=== PATIENT | male | born 1975 | race Caucasian/White ===

== ENCOUNTER 2023-07-22 10:27 | Emergency (ER) | payer BC, SELFPAY ==
[2023-07-22 10:35] VITALS: BP 165/106
--- NOTE | 2023-07-22 11:17 | ED.GENMED ---
History of Present Illness
<Adelina Cervantes PA-C - Last Filed: 07/22/23 19:10>
General
Chief Complaint: Dizziness
Source: patient
Exam Limitations: none
Time Seen by Provider: 07/22/23 11:16
Nursing documentation reviewed up to this point in time: agreed with
Travel History
Have you had any contact with someone who has COVID-19?: No
Do you have any symptoms of coronavirus? Fever > 100 degrees, chills, cough, shortness of breath, sore throat, loss of taste or smell, muscle aches, or headache?: No
History of Present Illness
History of Present Illness:
48-year-old male with history of idiopathic dilated cardiomyopathy presenting emergency department today with dizziness that started last night. Patient states that last night, he started to feel dizzy when he is trying to sleep, he states that he
was eventually able to fall asleep despite the symptoms. Patient states that he woke up today and noticed that his symptoms are still present. Patient states that when he got a bed and started to walk around, he had a lot of trouble walking.
Patient denies any visual changes, denies any headache but does note a sensation of feeling like his head is spinning does not note that he feels like the room is spinning. Patient states that there is no positional component to his symptoms.
Patient denies any chest pain, shortness of breath, lower extremity swelling. Patient denies any nausea or vomiting. Patient has never had anything like this before. Patient has been feeling well these past few days, denies recent illnesses,
recent URI symptoms. Patient denies recent hospitalizations, patient is not on a blood thinner.
Past History
<Adelina Cervantes PA-C - Last Filed: 07/22/23 19:10>
Past History
ED Past Medical History: Other (Cardiomyopathy)
ED Past Surgical History: None
Social History
Tobacco: Non-smoker
Alcohol: None
Drug: None
Personal:
Living: with family
Review of Systems
<Adelina Cervantes PA-C - Last Filed: 07/22/23 19:10>
Review of Systems
All Other Systems: ROS reviewed and negative except as documented in HPI and ROS
Phy Exam
<Adelina Cervantes PA-C - Last Filed: 07/22/23 19:10>
Physical Exam
Physical Exam:
General: Patient is well appearing and in no acute distress; non-toxic
Skin: Warm and dry, no rashes or lesions
Head: Normocephalic, atraumatic
Eyes: Sclera non-icteric. EOMs intact. PERRLA. No nystagmus.
Cardiac: Regular rate
Peripheral Vascular:
Pulm: Normal respiratory effort
Abdomen: No abdominal tenderness
Musculoskeletal:
Neuro: CN II-XII intact, no focal neurologic deficits. Uniwmr-ng-[id number] testing, xnqi-jz-[id number] testing intact. 5 out of 5 strength in bilateral upper and lower extremities.
Psychiatric: Appropriate mood and affect.
Scores
<Adelina Cervantes PA-C - Last Filed: 07/22/23 19:10>
NIH Stroke Score
Level of Consciousness: 0 - Alert
LOC Questions: 0-Answers both correctly
LOC Commands: 0-Performs both correctly
Best Horizontal Gaze: 0-Normal
Visual Quach: 0=Normal, no visual loss
Facial Palsy: 0=Normal, symmetrical
Motor - Right Arm: 0=No drift 10 seconds
Motor - Left Arm: 0=No drift 10 seconds
Motor - Right Le-No drift 5 seconds
Motor - Left Le-No drift 5 seconds
Limb Ataxia: 0-Absent
Sensation: 0-Normal
Best Language: 0-No aphasia
Dysarthria: 0-Normal
Extinction and Inattention: 0-No abnormality
Total Score:: 0
<Alejandra Aguilera MD - Last Filed: 07/22/23 12:13>
NIH Stroke Score
Total Score:: 0
Course
<Adelina Cervantes PA-C - Last Filed: 07/22/23 19:10>
Orders/Labs/Results
Orders:
Orders
07/22/23 11:28
Electrocardiogram (*1) Urgent
Reason for Study: Vertigo / Dizzy
EKG- Treatment ONCE
07/22/23 11:29
CT Head W/o Iv Contrast Urgent
Comment:
Reason For Exam: dizziness
07/22/23 11:32
Complete Blood Count/With Diff Urgent
Comprehensive Metabolic Panel Urgent
07/22/23 12:05
PT Consult [Pt Eval And Treat] Urgent
Activity Level: Out of Bed-Early Mobility
07/22/23 13:16
Orthostatic VS- Treatment ONCE
07/22/23 13:19
Meclizine [Antivert] 12.5 mg PO NOW STA
07/22/23 13:55
Meclizine [Antivert] 50 mg PO NOW STA
Abnormal Lab Results
07/22/23
11:32
MCH 31.9 H pg
(27.0-31.0)
Sodium 134 L mmol/L
(135-145)
Glucose 149 H mg/dl
(70-99)
ALT 58 H U/L
(0-50)
07/22/23 11:32
07/22/23 11:32
Vital Signs
Initial and Last Documented VS:
Initial Vital Signs
Temp Pulse Resp BP Pulse Ox
98.3 F 67 16 165/106 98
07/22/23 10:35 07/22/23 10:35 07/22/23 10:35 07/22/23 10:35 07/22/23 10:35
Last Documented Vital Signs
Temp Pulse Resp BP Pulse Ox
98.3 F 67 16 137/87 98
07/22/23 10:35 07/22/23 10:35 07/22/23 10:35 07/22/23 13:01 07/22/23 13:01
<Alejandra Aguilera MD - Last Filed: 07/22/23 12:13>
Orders/Labs/Results
Orders:
Orders
07/22/23 11:28
Electrocardiogram (*1) Urgent
Reason for Study: Vertigo / Dizzy
EKG- Treatment ONCE
07/22/23 11:29
CT Head W/o Iv Contrast Urgent
Comment:
Reason For Exam: dizziness
07/22/23 11:32
Complete Blood Count/With Diff Urgent
Comprehensive Metabolic Panel Urgent
07/22/23 12:05
PT Consult [Pt Eval And Treat] Urgent
Activity Level: Out of Bed-Early Mobility
07/22/23 13:16
Orthostatic VS- Treatment ONCE
07/22/23 13:19
Meclizine [Antivert] 12.5 mg PO NOW STA
07/22/23 13:55
Meclizine [Antivert] 50 mg PO NOW STA
Abnormal Lab Results
07/22/23
11:32
MCH 31.9 H pg
(27.0-31.0)
Sodium 134 L mmol/L
(135-145)
Glucose 149 H mg/dl
(70-99)
ALT 58 H U/L
(0-50)
07/22/23 11:32
07/22/23 11:32
Vital Signs
Initial and Last Documented VS:
Initial Vital Signs
Temp Pulse Resp BP Pulse Ox
98.3 F 67 16 165/106 98
07/22/23 10:35 07/22/23 10:35 07/22/23 10:35 07/22/23 10:35 07/22/23 10:35
Last Documented Vital Signs
Temp Pulse Resp BP Pulse Ox
98.3 F 67 16 137/87 98
07/22/23 10:35 07/22/23 10:35 07/22/23 10:35 07/22/23 13:01 07/22/23 13:01
<Adelina Cervantes PA-C - Last Filed: 07/22/23 19:10>
MDM/Problems Addressed
Differential Diagnosis Includes:
Differentials include BP PV, vestibular neuritis, posterior circulation stroke, alcohol intoxication, viral syndrome, dehydration, orthostatic hypotension
MDM/Problems Addressed:
Dizziness
Chronic conditions affecting care:
Idiopathic dilated cardiomyopathy, hypertension
<Adelina Cervantes PA-C - Last Filed: 07/22/23 19:10>
*Pulse Oximetry
Patient hypoxic: no
*Critical Care Note
Total Time (30-74mins, 75-104mins- exclusive of procedures): Not Applicable
Data Reviewed
Review of Other/Old Records Reveals: Records and Discharge Summary
<PIA Goldman Last Filed: 07/22/23 19:10>
Patient Management
Escalation/DeEscalation of care consider admission/obs:
48-year-old male with history of idiopathic dilated cardiomyopathy presenting emergency department today with dizziness that started last night. Patient describes it as a head spinning sensation, was seen by his PCP today who noted that his gait
was abnormal any fever the right side and was sent to the emergency department for further evaluation. Here in the ER, he has a nonfocal neurologic exam and his CMP and CBC are unremarkable. His CT of the head is negative. Patient was evaluated
by physical therapy who were not able to determine a peripheral cause of his symptoms and noted no nystagmus on exam however, on evaluation, his gait was steady. We proceeded to treat patient's symptoms with meclizine. On reevaluation, patient
symptoms greatly improved and now he only notes some mild dizziness. His gait was personally reassessed by me which was normal and steady. We spoke to Dr. Ruiz, neurologist on-call, who recommends outpatient follow-up and symptomatic treatment so
long as patient is able to walk. Agreement with this recommendation, patient stable for discharge. Patient will continue to monitor symptoms.
ED Attending Note
<Adelina Cervantes PA-C - Last Filed: 07/22/23 19:10>
-
Portions of this chart may have been created with voice recognition software.� Occasional wrong word or��sound alike� substitutions may have occurred due to the inherent limitations of voice recognition software.
<Alejandra Aguilera MD - Last Filed: 07/22/23 12:13>
ED Attending Note
Patient seen and examined by attending physician: Yes
I performed the substantive portion of visit, reviewed & personally made and approve the management plan that is documented in note by myself or SOMMER.: Yes
ED Attending Note:
Patient appears well. He has a nonfocal neurological exam. He has normal [id number]. Patient describes a feeling of spinning and that his equilibrium is off. He describes that if he were to try to walk, he would fall over. Awaiting CT
report. Will have physical therapy assess the patient to see the cause of the vertigo. Later, if needed, we will offer patient meclizine or Valium. Patient does have a history of high blood pressure, former smoker and does have cardiomyopathy.
He denies a former history of stroke or vertigo.
Discharge Plan
Departure
Patient Disposition: Home (Routine Discharge)
Date of Disposition: 07/22/23
Time of Disposition: 14:59
Patient with high blood pressure during this ER visit?: Yes
Condition: Good
Discharge Problem:
Dizziness
Instructions: Vertigo (a type of dizziness), BLOOD PRESSURE
Prescriptions:
New
meclizine 12.5 mg tablet
See Rx Instructions .ROUTE .COMPLEX PRN (Reason: dizziness) Qty: 14 0RF
Rx Instructions:
12.5 mg to 25 mg every 6 to 12 hours orally as needed
No Action
aspirin 325 MG tablet
325 mg PO DAILY
multivitamin 1 EACH capsule
1 cap PO DAILY
METAMUCIL
Patient Comments:
patient takes 3 tablespoons a day
oxycodone-acetaminophen [Percocet] 1 EACH tablet
1 ea PO Q4HPRN PRN (Reason: pain) Qty: 20 0RF
cephalexin 500 MG capsule
500 mg PO BID Qty: 20 0RF
ketorolac 10 MG tablet
10 mg PO Q6HPRN PRN (Reason: Pain) Qty: 12 0RF
diazepam 5 MG tablet
5 mg PO TIDPRN PRN (Reason: Pain, spasm) Qty: 12 0RF
Referrals:
Phil Donohue MD [Active] - Call in 1-3 days for appt
Tavo Franklin MD [Family Provider] -
Activity Restrictions/Additional Instructions:
Please do not take any Meclizine today. Tomorrow, if you start to experience dizziness again tomorrow, you can take one to two tablets every 6-12 hours as needed for dizziness. Each tablet is 12.5 mg. Please do not exceed 100 mg per day.
Please return to the emergency department should you experience any fainting spells, syncopal episode, headache, chest pain shortness of breath, difficulty speaking, weakness, confusion, or any other signs or symptoms concerning to you.
Please follow up with your primary care provider.
Interventions
Interventions:
*Risk Screen - Suicide Last Done: 07/22/23 10:35
*General Assessment Last Done: 07/22/23 10:35
*Neglect/Abuse Screening Last Done: 07/22/23 10:35
ED- Fall Risk Assessment Last Done: 07/22/23 15:52
*Nursing Disposition Last Done: 07/22/23 15:52
ED- Neurological Assessment Last Done: 07/22/23 12:03
Discharge Date and Time
Discharge Date/Time: 07/22/23 15:53
Print Language: KAZAKH
[2023-07-22 11:40] LABS: % Basophils 0.7 % (0-2); % Eosinophils 1.4 % (0-6); % Immature Granulocytes 0.3 % (0-0.5); % Lymphocytes 20.5 % (20.5-51.1); % Monocytes 6.6 % (1.7-9.3); % Neutrophils 70.5 % (42.2-75.2); Absolute Basophils 0.1 10^3/uL (0-0.2); Absolute Eosinophils 0.1 10^3/uL (0-0.7); Absolute Lymphocytes 1.5 10^3/uL (1.2-3.4); Absolute Monocytes 0.5 10^3/uL (0.1-0.6); Absolute Neutrophils 5.1 10^3/uL (1.4-6.5); Hematocrit 42.8 % (39.0-52.0); Hemoglobin 15.8 g/dL (13.0-18.0); Mean Corp Hgb Conc. 36.9 g/dL (33.0-37.0); Mean Corpuscular Hgb 31.9 pg (27.0-31.0); Mean Corpuscular Volume 86.3 fL (80.0-94.0); Mean Platelet Volume 9.3 fL (7.4-10.4); Nucleated Red Blood Cells % 0 % (-); Platelet Count 241 10^3/uL (130-400); Red Blood Cell Count 4.96 10^6/uL (4.70-6.10); Red Cell Dist. Width 12.1 % (11.5-14.5); White Blood Cell Count 7.2 10^3/uL (4.8-10.8)
[2023-07-22 11:49] LABS: ALT (SGPT) 58 U/L (0-50); AST (SGOT) 32 U/L (17-59); Albumin 4.7 g/dl (3.5-5.0); Alkaline Phosphatase 73 U/L (38-126); Blood Urea Nitrogen 17 mg/dl (9-20); Calcium 9.6 mg/dl (8.4-10.2); Carbon Dioxide 27 mmol/L (22-30); Chloride 102 mmol/L (98-107); Glucose 149 mg/dl (70-99); Sodium 134 mmol/L (135-145); Total Bilirubin 0.7 mg/dl (0.2-1.3); Total Protein 7.5 g/dl (6.3-8.2); eGFR > 60.00
[2023-07-22 12:35] LABS: Potassium 4.9 mmol/L (3.5-5.1)
[2023-07-22 13:01] VITALS: BP 137/87
[2023-07-22 13:05] VITALS: BP 137/87
[2023-07-22 13:35] VITALS: BP 131/75; BP 133/81; BP 140/81; PULSE 68; PULSE 74; PULSE 91
[2023-07-22] MEDS: ANTIVERT 12.5 MG PO (13:44)
[2023-07-22] MEDS: ANTIVERT 50 MG PO (14:20)
== END 2023-07-22 15:53 | disposition home or self-care (01) ==
LOC: EMR 10:27
PROVIDERS: Physician Assistant; EMERGENCY PHYSICIAN Emergency Medicine; FAMILY PHYSICIAN Family Medicine
DX: R42 Dizziness and giddiness (principal); I42.0 Dilated cardiomyopathy; I10 Essential (primary) hypertension; R03.0 Elevated blood-pressure reading, without diagnosis of hypertension
CPT/HCPCS: 99285; 70450; 80053; 85025; 93005

== ENCOUNTER → 2024-03-28 08:13 | Outpatient (REF) | payer BC, SELFPAY | LOC: RCS 08:13 | PROVIDERS: ATTENDING PHYSICIAN Student in an Organized Health Care Education/Training Program; FAMILY PHYSICIAN Family Medicine | DX: I42.0 Dilated cardiomyopathy (principal) | CPT/HCPCS: 93306 ==